=== PATIENT | female | born 1995 | race Caucasian/White ===

== ENCOUNTER 2021-03-19 10:45 | Emergency (ER) | payer OTHER, SELFPAY ==
[2021-03-19 10:55] VITALS: BP 120/70; PULSE 98; RESP 16; TEMP 36.5; O2SAT 100
--- NOTE | 2021-03-19 11:08 | ED.URI ---
HPI - URI/Sore Throat General Chief Complaint: Upper Respiratory Infection Stated Complaint: cough/sore throat Time Seen by Provider: 03/19/21 11:08 Source: patient and RN notes reviewed Mode of arrival: ambulatory Limitations: no limitations History of Present Illness HPI Narrative: 25-year-old female presents to the [facility] with complaints of cough and sore throat for 2 days. Has taken Tylenol. States the baby is moving normally. Has no concerns about her . States that she has had a sore throat for 2 days, worse this morning. MD elicited complaint: cough and sore throat Related Data Home Medications Medication Instructions Recorded Confirmed PNV cmb#95-ferrous fumarate-FA 1 tablet PO DAILY 03/17/21 03/17/21 [] Allergies Allergy/AdvReac Type Severity Reaction Status Date / Time amoxicillin Allergy Unknown Hives Verified 12/21/16 13:12 Review of Systems Review of Systems: All systems reviewed & are unremarkable except as noted in HPI and below Constitutional: Constitutional: Reports no additional constitutional complaints, Denies chills and Denies fever(s) Eyes: Eyes: Reports no additional eye complaints, Denies change in vision and Denies photophobia ENT: Reports as per HPI, Reports nasal congestion and Reports sore throat Cardiovascular: Cardiovascular: Reports no additional cardiovascular complaints and Denies chest pain Respiratory: Respiratory: Reports as per HPI, Denies chest congestion, Reports cough, Denies dyspnea and Denies wheezing Gastrointestinal: Gastrointestinal: Reports no additional gastrointestinal complaints Musculoskeletal: Musculoskeletal: Reports no additional musculoskeletal complaints Integumentary/Breasts: Skin/Breast: Reports system reviewed and no additional complaints, except as docu Neurologic: Reports system reviewed and no additional complaints, except as documented Psychiatric: Psychiatric: Reports no additional psychiatric complaints Allergic/Immunologic: Allergic/Immunologic: Reports no additional allergic/immunologic complaints [facility] Family History Family History Father Family history of migraine headaches Sibling Family history of migraine headaches Asthma Mother Family history of anemia Grandparent Family history of chronic obstructive pulmonary disease Malignant neoplasm of prostate Social History Social History Smoking status: Never smoker Alcohol intake: current Substance use: never Spiritual care concerns: No Comments At the time of my signature, I reviewed and agree with the nursing past medical, surgical, social, and family history. There is no relevant family history pertinent to the patient complaint. Exam Const: General: no acute distress and alert Nutritional Appearance: well nourished Orientation/consciousness: patient oriented x3 HENMT: Throat: uvula midline, postnasal drainage and no uvular edema Eyes: Conjunctivae: conjunctivae normal Pupils: Equal, round and reactive pupils present Neck: Neck: normal visual inspection, no lymphadenopathy and no meningeal signs Chest: Chest palpation & inspection: normal inspection of the chest Resp: Effort & Inspection: normal respiratory effort and no use of accessory muscles Auscultation: clear to auscultation bilaterally, no crackles, no rales, no rhonchi and no wheezes Cardio: Rate: regular rate : General: Yes no CVA tenderness Back/Spine/Pelvis: Back: no CVA tenderness Skin: General skin exam: normal color Rashes: no rashes Wounds: no wounds Neuro: General: patient oriented x3, moves all extremities, no meningeal signs and no focal motor deficits Speech: normal speech Gait exam (Neuro): Normal gait present Extrem: General: normal to inspection and no pedal edema Psych: Appearance: grossly normal and well kempt Mental Status: mental status grossly
== END 2021-03-19 11:22 | disposition home or self-care (01) ==
PROVIDERS: Emergency Provider Nurse Practitioner; PCP Internal Medicine
DX: R09.82 Postnasal drip (principal)
CPT/HCPCS: 87081; 87880; 99203; G0463

== ENCOUNTER 2021-03-27 10:00 | Inpatient (IN) | payer OTHER, SELFPAY ==
[2021-03-27] VITALS (140 sets, daily range): BP systolic 69–191; BP diastolic 33–160; PULSE 71–148; RESP 16–18; TEMP 36.6–37.4; O2SAT 82–100; BMI 41.3
--- NOTE | 2021-03-27 11:17 | LDADM ---
This patient, Constance Paredes, was admitted to Labor/Delivery/Recovery 105 on 03/27/21 at 10:00. Plans for labor, pain management and were discussed with patient. Patient/family oriented to hospital policies and general routines including ID bracelet, bed and alarms, visiting hours, pain management, procedures, bathroom and other care routines, personal items, smoking policy, room service/diet and guest tray routines, security routines, and visiting hours. Patient/Family are encouraged to report perceived risks to care and to ask questions if they do not understand what they are told or what they should do. See OBIX for further documentation.
[2021-03-27 11:31] LABS: Basophils Percent Auto 0.4 % (0.2-1.2); Eosinophils Absolute Auto 0.1 K/mm3 (0-0.3); Eosinophils Percent Auto 0.9 % (0-4.4); Hematocrit 39.5 % (37.0-47.0); Hemoglobin 13.7 g/dL (12.0-15.0); Immature Granulocyte Absolute 0.05 K/mm3 (0.00-0.031); Immature Granulocyte Percent A 0.6 % (0-0.5); Lymphocytes Absolute Auto 1.93 K/mm3 (0.9-3.2); Lymphocytes Percent Auto 22.5 % (18.3-44.2); Mean Corpuscular HGB Conc 34.7 g/dl (32-36); Mean Corpuscular Volume 92.3 fl (80-100); Mean Platelet Volume 10.6 fl (7.4-10.4); Monocytes Absolute Auto 0.6 K/mm3 (0.1-0.6); Monocytes Percent Auto 7.1 % (2.6-8.5); Neutrophils Absolute Auto 5.9 K/mm3 (1.3-6.7); Neutrophils Percent Auto 68.5 % (45.5-73.1); Platelet Count Result 243 k/mm3 (150-375); Red Blood Count 4.28 M/mm3 (4.2-5.4); Red Cell Distribution Width 12.3 % (11.5-14.5); White Blood Count 8.6 K/mm3 (4.5-10.0)
[2021-03-27] MEDS: LACTATED RINGERS 1,000 ML 125 ML IV CONT ×2 (13:57→17:40)
[2021-03-27] MEDS: OXYTOCIN 30 UNITS/NS 500 ML 30 UNITS/500 ML BAG 6 UNITS IV CONT (13:58)
[2021-03-27] MEDS: fentaNYL CITRATE INJ (*CRX) 100 MCG/2 ML VIAL 50 MCG IV PUSH (16:18)
--- NOTE | 2021-03-27 16:59 | WPDOBADMIT ---
Obstetrics - Admit Note Admission Note: record reviewed. Additions to the history and/or subsequent changes in the physical findings follow. 25 ty/o G1 at 37 3/7 weeks here after a gush of clear fluid at 0900 today. GBS neg. AVSS ABD soft, nontender, gravid, vertex EXT nontender Cervix 2/80/-2. Gross ROM. NST reactive TOCO: contractions every 2-4 min Bedside ultrasound by me shows vertex presentation. A: IUP at term with SROM. P: Augmenting labor as needed. Anticipate .
--- NOTE | 2021-03-27 17:48 | WPDANESEPPF ---
Anes - Initial Pre Proc Eval Procedure: labor epidural Date/Time: 03/27/21 17:48 Surgeon: Orlin Garvey MD Pre Op Diagnosis: labor pain Pre Op Diagnosis: SROM Patient Data Age: 25 Gender: F Height: 1.52 m Weight: 96 kg Last Vital Signs Temp 36.6 C 03/27/21 17:35 Pulse 76 03/27/21 17:46 Resp 16 03/27/21 17:35 BP 100/69 03/27/21 17:46 Pulse Ox 100 03/27/21 17:45 Allergies Allergy/AdvReac Type Severity Reaction Status Date / Time amoxicillin Allergy Unknown Hives Verified 12/21/16 13:12 Home Medications Medication Instructions Recorded Confirmed Type PNV cmb#95-ferrous fumarate-FA 1 tablet PO DAILY 03/17/21 03/17/21 History [] Laboratory Tests 03/27/21 03/27/21 03/27/21 11:22 11:22 14:06 WBC 8.6 K/mm3 K/mm3 (4.5-10.0) RBC 4.28 M/mm3 M/mm3 (4.2-5.4) Hgb 13.7 g/dL g/dL (12.0-15.0) Hct 39.5 % % (37.0-47.0) MCV 92.3 fl fl (80-100) MCH 32.0 pg pg (26-34) MCHC 34.7 g/dl g/dl (32-36) RDW 12.3 % % (11.5-14.5) Plt Count 243 k/mm3 k/mm3 (150-375) MPV 10.6 fl H fl (7.4-10.4) Immature Gran % (Auto) 0.6 % H % (0-0.5) Neut % (Auto) 68.5 % % (45.5-73.1) Lymph % (Auto) 22.5 % % (18.3-44.2) [place] % (Auto) 7.1 % % (2.6-8.5) Eos % (Auto) 0.9 % % (0-4.4) Baso % (Auto) 0.4 % % (0.2-1.2) Lymph # (Auto) 1.93 K/mm3 K/mm3 (0.9-3.2) [place] # (Auto) 0.6 K/mm3 K/mm3 (0.1-0.6) Eos # (Auto) 0.1 K/mm3 K/mm3 (0-0.3) Baso # (Auto) 0.0 K/mm3 K/mm3 (0.0-0.1) Abs Immat Gran (auto) 0.05 K/mm3 H K/mm3 (0.00-0.031) Absolute Neuts (auto) 5.9 K/mm3 K/mm3 (1.3-6.7) Absolute Nucleated RBC 0.0 K/mm3 K/mm3 (0.0-0.012) Nucleated RBC % 0.0 % % (0.0-0.2) RPR Pending Blood Type O Positive Antibody Screen Negative Patient hx anesthesia problems: none Family hx anesthesia problems: none Results Review: All pre-operative results and documents have been reviewed as part of the pre-operative evaluation. [facility] Family History Family History Father Family history of migraine headaches Sibling Family history of migraine headaches Asthma Mother Family history of anemia Grandparent Family history of chronic obstructive pulmonary disease Malignant neoplasm of prostate Social History Social History Smoking status: Never smoker Second hand tobacco smoke exposure: No Alcohol intake: current Substance use: never Spiritual care concerns: No Anes - Eval Final PreProcedure Day of Procedure 03/27/21 17:48 Patient weight: morbidly obese ASA classification: III Anesthesia type and monitoring: regional epidural Results Review: All pre-operative results and documents have been reviewed as part of the pre-operative evaluation. Informed Consent: The patient's anesthetic plan and its attendant risks and benefits were discussed with the patient/family/POA. Questions were solicited and answers provided to the satisfaction of the patient/family/POA.
[2021-03-27] MEDS: FAMOTIDINE 20 MG/2 ML VIAL IV PUSH (21:20)
[2021-03-27] MEDS: ONDANSETRON INJ 4 MG/2 ML VIAL IV PUSH (21:34)
[2021-03-28] VITALS (123 sets, daily range): BP systolic 73–131; BP diastolic 50–93; PULSE 66–283; RESP 16–20; TEMP 36.6–38.1; O2SAT 65–100
[2021-03-28] MEDS: LACTATED RINGERS 1,000 ML 125 ML IV CONT (02:45)
[2021-03-28] MEDS: ceFAZolin 2 GM/D5W 50 ML 2 GM/50 ML BAG IVPB (03:11)
--- NOTE | 2021-03-28 06:10 | P.PCNOB_ITS ---
OB - Delivery Note Procedure Delivery date: 03/28/21 Procedure: Induction method: none Delivery augmentation: pitocin Delivery monitor: external FHT, external uterine and internal uterine Route of delivery: Laceration Description: Vaginal - 1st Degree and Labial Delivery repair: vicryl (3-0) Specimen: Yes (cord blood) Quantitative Blood Loss (ml): 55 Anesthesia type: Epidural Disposition: PACU Complications: None Narrative: 25 y/o G1 at 37 4/7 weeks gestation who presented to the hospital after a gush of clear fluid. Labor was diagnosed. She subsequently received oxytocin for labor augmentation. She received an epidural for pain control. She was given Ancef IV after 18 hours of SROM. Her labor progressed and her cervix dilated completely. She pushed with good effort and delivered the infant's head to the perineum. A nuchal cord x 2 was splinted and the body delivered. The cord was reduced. The nose and mouth were bulb suctioned. After a delay, the cord was clamped and cut. The infant was handed off the field. Cord blood was collected. The placenta delivered spontaneously and was grossly normal in appearance. The usual 3 vessel cord was noted. A distal vaginal laceration was sustained, as was a right labial laceration. These were reapproximated using 3 0 Vicryl in interrupted figure of eight fashion. Excelle nt hemostasis resulted as did excellent reapproximation of the normal anatomy. Needle and instrument counts were correct. The patient was taken to recovery room in stable condition. The infant went to the nursery in stable condition. I was present and scrubbed for the entire delivery. Baby Date of : 03/28/21 Time of : 05:52 Weeks of gestation at delivery: 37 gender: Female Weight (pounds): 6 Weight (ounces): 13 presentation: vertex position: Right Occiput Anterior Placenta delivery description: Spontaneous and Normal Configuration cord vessel description: 3 Vessels and Nuchal Cord (x2) score one minute: 7 score five minutes: 9
--- NOTE | 2021-03-28 06:15 | P.DS_ITS ---
DS: Admitting Diagnosis Discharge Date 03/29/21 Admitting Diagnosis IUP at 37 3/7 weeks SROM DS: Discharge Diagnosis Discharge Diagnosis (1) (normal spontaneous vaginal delivery): Code(s): O80 - Encounter for full-term uncomplicated delivery Status: Acute OB - DS: Summary OB Procedures : None OB Procedures Intrapartum: Spontaneous Vag Delivery OB Procedures: : None DS: Data Data Completed and Pending Labs on day of discharge: Labs from last 24 hours 03/27/21 03/27/21 03/27/21 14:06 11:22 11:22 WBC 8.6 RBC 4.28 Hgb 13.7 Hct 39.5 MCV 92.3 MCH 32.0 MCHC 34.7 RDW 12.3 Plt Count 243 MPV 10.6 H Immature Gran % (Auto) 0.6 H Neut % (Auto) 68.5 Lymph % (Auto) 22.5 [place] % (Auto) 7.1 Eos % (Auto) 0.9 Baso % (Auto) 0.4 Lymph # (Auto) 1.93 [place] # (Auto) 0.6 Eos # (Auto) 0.1 Baso # (Auto) 0.0 Abs Immat Gran (auto) 0.05 H Absolute Neuts (auto) 5.9 Absolute Nucleated RBC 0.0 Nucleated RBC % 0.0 RPR Pending Blood Type O Positive Antibody Screen Negative Discharge Plan Discharge Attending physician on discharge: Orlin Garvey Discharging Clinician: Orlin Garvey Patient Disposition: Home, Self-Care Activity: pelvic rest Diet: regular Discharge Instructions: Call or return if temperature above 100.4? F, increased abdominal pain, increased vaginal bleeding or any new problems. Stand Alone Forms: General Discharge Information Follow-up/Referrals: Orlin Garvey MD [Physician] - 6 Weeks Discharge Medications: New ibuprofen 600 mg tablet 600 mg PO Q6H PRN (Reason: cramps) Qty: 30 RF: 0 Continued PNV cmb#95-ferrous fumarate-FA [] 28 mg iron- 800 mcg Tablet 1 tablet PO DAILY RF: 0 Date of admission: 03/27/21 10:00 Primary Care Provider: Shahbaz Mosley Admitting Provider: Orlin Garvey Attending physician on admission: Orlin Garvey Condition: Stable
[2021-03-28] MEDS: OXYTOCIN 30 UNITS/NS 500 ML 30 UNITS/500 ML BAG 125 UNITS IV CONT (06:35)
[2021-03-28] MEDS: BENZOCAINE 20% AER SPR (*SP) 56 GM CAN 1 SPRAY TOPICAL (07:49)
[2021-03-28] MEDS: WITCH HAZEL 40 PADS 1 PAD TOPICAL (07:49)
[2021-03-28] MEDS: IBUPROFEN 600 MG TABLET PO ×2 (07:52→14:18)
--- NOTE | 2021-03-28 08:53 | PC.NURSE ---
Patient transferred to post room #283 per wheelchair from labor and delivery. Support person present. Oriented to unit, room, information board, rooming in, admission packet and security measures. Patient verbalizes understanding.
[2021-03-28] MEDS: MULTIVIT/MIN/PREN/FOL AC/IRON TABLET 1 TAB PO (10:29)
[2021-03-28 13:13] LABS: Rapid Plasma Reagin Non-Reactive (NonReactive)
[2021-03-28] MEDS: ACETAMINOPHEN 325 MG TABLET 650 MG PO (19:15)
[2021-03-29] MEDS: IBUPROFEN 600 MG TABLET PO (03:00)
[2021-03-29 03:16] LABS: Hematocrit 31.7 % (37.0-47.0)
[2021-03-29] MEDS: ACETAMINOPHEN 325 MG TABLET 650 MG PO (06:10)
[2021-03-29 08:00] VITALS: BP 107/62; PULSE 75; RESP 16; TEMP 36.1
[2021-03-29] MEDS: DOCUSATE SODIUM 100 MG CAPSULE PO (08:03)
[2021-03-29] MEDS: MULTIVIT/MIN/PREN/FOL AC/IRON TABLET 1 TAB PO (08:03)
--- NOTE | 2021-03-29 08:25 | PC.NURSE ---
Patient viewed the discharge video Mother & Baby Care, The First Two Weeks online. Patient was given the opportunity and encouraged to ask questions. Patient verbalized understanding of information shared and has been given the mother/baby guide for home reference.
--- NOTE | 2021-03-29 09:38 | WPDANLDPN2 ---
Anes-Prog Note L&D Date/Time: 03/29/21 09:38 Comfortable throughout: labor and delivery Neuraxial method: epidural Epidural/Spinal procedure site: clean & non-tender Neuro status: Neuro function grossly intact. Cardiovascular status: normal Respiratory status: normal Airway patency: baseline Mental status: baseline Post-Op hydration status: normal Vital Signs: Last Vital Signs Temp 97.0 F L 03/29/21 08:00 Pulse 75 03/29/21 08:00 Resp 16 03/29/21 08:00 BP 107/62 03/29/21 08:00 Pulse Ox 97 03/28/21 12:33 Pain score (VAS): 0 Post-procedural complaints: none Patient feedback: Patient satisfied with anesthetic care.
--- NOTE | 2021-03-29 09:58 | PM.OBPNVD ---
OB - PN: Subj Subjective Date/time seen: 03/29/21 09:58 Narrative: Pain OK. Would like to go home. OB - PN: Obj Data Labs CBC & Chem 7: 03/29/21 03:02 Labs: Laboratory Results - last 24 hr 03/27/21 03/29/21 11:22 03:02 Hgb 11.0 L Hct 31.7 L RPR Non-reactive OB - PN A/P Plan Comments: A: PPD#1, doing well. P: Home to f/u 6 weeks. Exam Psych: Other: AVSS ABD soft, nontender, fundus firm EXT nontender
[2021-03-31 09:48] VITALS: BP 124/66; PULSE 74; RESP 16; TEMP 36.8; O2SAT 99
== END 2021-03-29 10:53 | disposition home or self-care (01) | DRG 807 ==
LOC: ANHLDR 03-28 06:16 → ANHOB2 03-28 08:54
PROVIDERS: Admitting Provider Obstetrics & Gynecology; PCP Internal Medicine; Visit Provider Obstetrics & Gynecology
DX: O75.2 Pyrexia during labor, not elsewhere classified (principal); Z37.0 Single live birth; O70.0 First degree perineal laceration during delivery; O69.81X0 Labor and delivery complicated by cord around neck, without compression, not applicable or unspecified; O76 Abnormality in fetal heart rate and rhythm complicating labor and delivery; Z3A.37 37 weeks gestation of pregnancy
CPT/HCPCS: 36415; 84112; 85014; 85018; 85025; 86592; 86850; 86900; 86901; A9270; J0131; J0690; J2405; J2590; J2795; J3010; J7120

== ENCOUNTER 2023-01-16 13:30 | Day surgery (SDC) | payer OTHER, SELFPAY ==
--- NOTE | ~2023-01-16 | US_ITS ---
EXAMINATION: US pelvic complete DATE: 01/16/2023 17:21 INDICATION: Miscarriage TECHNIQUE: Multiple transabdominal and endovaginal sonographic images of the pelvis were obtained. COMPARISON: None. FINDINGS: Uterus: 7.2 x 4.0 x 4.7 cm. Endometrial complex is heterogeneous and measures 18 mm. Right Ovary: 3.8 x 2.6 x 2.6 cm. Vascular flow is present. No adnexal mass. Left Ovary: 3.6 x 2.3 x 2.6 cm. Vascular flow is present. No adnexal mass. There is no free fluid in the pelvis. IMPRESSION: Heterogeneous and thickened endometrium, may represent retained products. Reviewed, dictated and finalized at location K.
[2023-01-16 13:36] VITALS: BP 138/77; PULSE 83; RESP 16; TEMP 36.5; O2SAT 100
--- NOTE | 2023-01-16 13:57 | ED.FEMALEGU ---
HPI - Female Genitourinary General Chief complaint: Vaginal Bleeding Stated complaint: possible miscarriage Time Seen by Provider: 01/16/23 13:45 Source: patient History of Present Illness HPI Narrative: 27 years old white female came to the emergency room with sudden backbleed. Patient is 2, para 1, abortions 0, status post IUD removal December 15, 2022. Patient tested positive for 2 weeks later at home., Had a visit to her FAMILY SUPPORT COORDINATOR with positive test in his office at that time. Patient scheduled for pelvic ultrasound next week. In the currently patient on vitamins, she does not smoke or drink or uses drugs. Patient does not remember when the last time had a menstrual cycle. Related Data Home Medications Medication Instructions Recorded Confirmed vit no.95-ferrous 1 tablet PO DAILY 03/17/21 03/17/21 fumarate 28 mg-folic acid 800 mcg tablet () Allergies Allergy/AdvReac Type Severity Reaction Status Date / Time amoxicillin Allergy Unknown Hives Verified 01/16/23 13:50 Review of Systems Review of Systems: All systems reviewed & are unremarkable except as noted in HPI and below PMFSH Family History Family History Father Family history of migraine headaches Sibling Family history of migraine headaches Asthma Mother Family history of anemia Grandparent Family history of chronic obstructive pulmonary disease Malignant neoplasm of prostate Social History Social History Smoking status: Never smoker Second hand tobacco smoke exposure: No Alcohol intake: current Substance use: never Spiritual care concerns: No Exam Narrative: General appearance: Well-developed, well-nourished Skin: Normal color Head: Normocephalic, nontraumatic Eyes: Clear conjunctiva ENT: Oropharynx normal, ears normal, nose normal Neck: Supple, nontender Chest and respiratory: Airway patent, no respiratory distress, no accessory muscle use Heart: Regular rate/rhythm Abdomen: Soft, nontender, no organomegaly, quiet bowel sounds Vascular: Normal peripheral pulses, normal capillary refill. Musculoskeletal: Normal range of motion, nontender back Neurologic: Alert and oriented ?3, FILEMAKER DEVELOPER is normal as tested, no gross motor deficit : External Female Exam: normal external appearance Speculum Exam - Vagina: normal appearance of the vagina and vaginal bleeding (Mild to moderate active vaginal bleeding, with quite a bit of blood clots, ) Speculum Exam - Cervix: normal appearance of the cervix Bimanual exam- vagina & uterus: cervical motion tenderness Bimanual Exam- Adnexa, other: tender Course Reevaluation(s) Reevaluation #1: Patient feels depressed and crying after ultrasound report about retained products. Date: 01/16/23 Time: 18:28 Consultations Consultation #1: Dr. Ninoska Joiner, OR for D&C Date: 01/16/23 Time: 18:08 Vital Signs Vital signs: Vital Signs Temperature 36.5 C 01/16/23 13:36 Pulse Rate 83 01/16/23 13:36 Respiratory Rate 16 01/16/23 13:36 Blood Pressure 138/77 01/16/23 13:36 Pulse Oximetry 100 01/16/23 13:36 Temperature 36.5 C 01/16/23 13:36 Pulse Rate 83 01/16/23 13:36 Respiratory Rate 16 01/16/23 13:36 Blood Pressure 138/77 01/16/23 13:36 Pulse Oximetry 100 01/16/23 13:36 MDM - Female Genitourinary MDM Narrative Medical decision making narrative: Patient presents with sudden vaginal bleeding, patient is , unknown duration, patient does not remember when the last time had a menstrual cycle, status post IUD re
[2023-01-16 14:09] LABS: Basophils Percent Auto 0.5 % (0.2-1.2); Eosinophils Absolute Auto 0.2 K/mm3 (0-0.3); Hematocrit 40.7 % (37.0-47.0); Hemoglobin 13.9 g/dL (12.0-15.0); Immature Granulocyte Absolute 0.02 K/mm3 (0.00-0.031); Immature Granulocyte Percent A 0.2 % (0-0.5); Lymphocytes Absolute Auto 2.22 K/mm3 (0.9-3.2); Mean Corpuscular HGB Conc 34.2 g/dl (32-36); Mean Corpuscular Hemoglobin 31.9 pg (26-34); Mean Corpuscular Volume 93.3 fl (80-100); Mean Platelet Volume 9.7 fl (7.4-10.4); Monocytes Absolute Auto 0.7 K/mm3 (0.1-0.6); Monocytes Percent Auto 7.8 % (2.6-8.5); Neutrophils Absolute Auto 5.4 K/mm3 (1.3-6.7); Neutrophils Percent Auto 63.5 % (45.5-73.1); Platelet Count Result 242 k/mm3 (150-375); Red Blood Count 4.36 M/mm3 (4.2-5.4); Red Cell Distribution Width 11.3 % (11.5-14.5); White Blood Count 8.5 K/mm3 (4.5-10.0)
[2023-01-16] MEDS: SODIUM CHLORIDE 0.9% IV 1,000 ML 999 ML IV CONT ×2 (14:13→18:10)
[2023-01-16 14:19] LABS: Appearance Urine Clear (Clear); Bilirubin Urine Negative (Negative); Blood Urine 1+ (Negative); Color Urine Yellow (Yellow); Glucose Urine UA Negative (Negative); Ketones Urine Negative (Negative); Leukocyte Esterase Ur Negative LEU/UL (Negative); Nitrate Urine Negative (Negative); Protein Urine Negative (Negative); Urobilinogen Urine 0.2 mg/dL (<2.0)
[2023-01-16 14:24] LABS: Bacteria Urine None Seen /hpf; Non Pathogenic Casts 0-2; Squamous Epithelial Cell Urine None seen /hpf (Few); WBC Urine 0-5 /hpf
[2023-01-16 14:38] LABS: Add Urine Microscopic? YES
[2023-01-16 16:45] VITALS: BP 127/78; PULSE 88; RESP 16; O2SAT 99
--- NOTE | 2023-01-16 17:02 | PC.NURSE ---
Pt to U/S via w/c at this time. sig other remains at bedside
[2023-01-16] MEDS: ACETAMINOPHEN 500 MG TABLET 1000 MG PO (17:34)
[2023-01-16 18:07] VITALS: BP 111/79; PULSE 84; RESP 20; O2SAT 100
--- NOTE | 2023-01-16 18:35 | PM.IMHP ---
H&P: HPI History of Present Illness Date/Time: 01/16/23 18:35 Chief Complaint: Bleeding with early Narrative: 27-year-old 2 were in her 1st trimester with incomplete AV. She had vaginal bleeding was seen through the ER. Ultrasound shows retained products of conception with a quantitative HCG over 5. Suction dilatation and curettage was offered. Risks and benefits reviewed. She had all questions answered and agrees to proceed f [facility] Family History Family History Father Family history of migraine headaches Sibling Family history of migraine headaches Asthma Mother Family history of anemia Grandparent Family history of chronic obstructive pulmonary disease Malignant neoplasm of prostate Social History Social History Smoking status: Never smoker Second hand tobacco smoke exposure: No Alcohol intake: current Substance use: never Spiritual care concerns: No Meds Home Medications and Allergies Home Medications Medication Instructions Recorded Confirmed Type vit no.95-ferrous 1 tablet PO DAILY 03/17/21 03/17/21 History fumarate 28 mg-folic acid 800 mcg tablet () Allergies Allergy/AdvReac Type Severity Reaction Status Date / Time amoxicillin Allergy Unknown Hives Verified 01/16/23 13:50 Vital Signs Vital Signs - 24 hr 01/16/23 13:36 01/16/23 16:45 01/16/23 18:07 Temperature 97.7 F Pulse Rate 83 88 84 Respiratory Rate 16 16 20 Blood Pressure 138/77 127/78 111/79 Pulse Oximetry 100 99 100 Exam Const: General: cooperative, healthy appearing and comfortable Nutritional Appearance: average body habitus Orientation/consciousness: oriented to person, oriented to place and oriented to time HENMT: Head: normal to inspection Resp: Effort & Inspection: normal respiratory effort Cardio: Rate: regular rate Rhythm: regular rhythm Heart sounds: S1 normal heart sound present and S2 normal heart sound present GI: Inspection: normal to inspection : External Female Exam: normal external appearance Speculum Exam - Vagina: normal appearance of the vagina and vaginal bleeding Speculum Exam - Cervix: Cervical os open Bimanual exam- vagina & uterus: enlarged Bimanual Exam- Adnexa, other: normal adnexae H&P: Results Labs Labs: Short CBC 01/16/23 Range/Units 14:02 WBC 8.5 (4.5-10.0) K/mm3 Hgb 13.9 (12.0-15.0) g/dL Hct 40.7 (37.0-47.0) % Plt Count 242 (150-375) k/mm3 Urine 01/16/23 Range/Units 14:12 Urine Color Yellow (Yellow) Urine Appearance Clear (Clear) Urine pH 6.0 (5.0-9.0) Ur Specific [place] 1.010 (1.001-1.035) Urine Protein Negative (Negative) mg/dL Urine Glucose (UA) Negative (Negative) mg/dL Assessment and Plan Assessment and plan (1) Miscarriage: Code(s): O03.9 - Complete or unspecified spontaneous without complication Status: Acute Plan Proceed with suction dilatation and curettage
--- NOTE | 2023-01-16 18:38 | WPDHPUPDATE1 ---
History and Physical Update Update Date/Time: 01/16/23 18:38 History and Physical has been reviewed, including an updated exam of the patient. There are NO changes in the patient's condition. Risks, benefits, and alternatives have been discussed and questions answered. Patient agrees to proceed with procedure.
--- NOTE | 2023-01-16 19:24 | WPDANESEPPF ---
Anes - Initial Pre Proc Eval Procedure: Operation Date: 01/16/23 19:45 Proposed Procedures p D&C Suction and Sharp - Robby Joiner MD Date/Time: 01/16/23 19:24 Surgeon: Robby Joiner MD Pre Op Diagnosis: possible miscarriage Patient Data Age: 27 Gender: F Height: 1.52 m Weight: 74 kg Last Vital Signs Temp 36.5 C 01/16/23 13:36 Pulse 84 01/16/23 18:07 Resp 20 01/16/23 18:07 BP 111/79 01/16/23 18:07 Pulse Ox 100 01/16/23 18:07 Allergies Allergy/AdvReac Type Severity Reaction Status Date / Time amoxicillin Allergy Unknown Hives Verified 01/16/23 13:50 Home Medications Medication Instructions Recorded Confirmed Type vit no.95-ferrous 1 tablet PO DAILY 03/17/21 03/17/21 History fumarate 28 mg-folic acid 800 mcg tablet () hydrocodone 5 mg-acetaminophen 325 1 tablet PO Q4H PRN pain #14 tabs 01/16/23 Rx mg tablet Laboratory Tests 01/16/23 01/16/23 14:02 14:12 WBC 8.5 K/mm3 (4.5-10.0) RBC 4.36 M/mm3 (4.2-5.4) Hgb 13.9 g/dL (12.0-15.0) Hct 40.7 % (37.0-47.0) MCV 93.3 fl (80-100) MCH 31.9 pg (26-34) MCHC 34.2 g/dl (32-36) RDW 11.3 L % (11.5-14.5) Plt Count 242 k/mm3 (150-375) MPV 9.7 fl (7.4-10.4) Immature Gran % (Auto) 0.2 % (0-0.5) Neut % (Auto) 63.5 % (45.5-73.1) Lymph % (Auto) 26.0 % (18.3-44.2) [place] % (Auto) 7.8 % (2.6-8.5) Eos % (Auto) 2.0 % (0-4.4) Baso % (Auto) 0.5 % (0.2-1.2) Lymph # (Auto) 2.22 K/mm3 (0.9-3.2) [place] # (Auto) 0.7 H K/mm3 (0.1-0.6) Eos # (Auto) 0.2 K/mm3 (0-0.3) Baso # (Auto) 0.0 K/mm3 (0.0-0.1) Abs Immat Gran (auto) 0.02 K/mm3 (0.00-0.031) Absolute Neuts (auto) 5.4 K/mm3 (1.3-6.7) Absolute Nucleated RBC 0.0 K/mm3 (0.0-0.012) Nucleated RBC % 0.0 % (0.0-0.2) Beta HCG, Quant 5201.00 mIU/ML Urine Color Yellow (Yellow) Urine Appearance Clear (Clear) Urine pH 6.0 (5.0-9.0) Ur Specific [place] 1.010 (1.001-1.035) Urine Protein Negative mg/dL (Negative) Urine Glucose (UA) Negative mg/dL (Negative) Urine Ketones Negative mg/dL (Negative) Ur Blood (Man) 1+ H (Negative) Urine Nitrate Negative (Negative) Urine Bilirubin Negative (Negative) Urine Urobilinogen 0.2 mg/dL (<2.0) Leukocyte Esterase Rfl Negative [place]NY/UL (Negative) Urine RBC 3-5 H /hpf (0-2) Urine WBC 0-5 /hpf Ur Squamous Epith Cells None seen /hpf (Few) Urine Bacteria None seen /hpf Urine Casts 0-2 Blood Type O Positive Antibody Screen Negative Screen Not Reportable Baby's Blood Type Not Reportable Baby's RIVERA Not Reportable Doses of RhIg Required 0 Patient hx anesthesia problems: none Family hx anesthesia problems: none Results Review: All pre-operative results and documents have been reviewed as part of the pre-operative evaluation. [facility] Family History Family History Father Family history of migraine headaches Sibling Family history of migraine headaches Asthma Mother Family history of anemia Grandparent Family history of chronic obstructive pulmonary disease Malignant neoplasm of prostate Social History Social History Smoking status: Never smoker Second hand tobacco smoke exposure: No Alcohol intake: current Substance use: never Spiritual care concerns: No Anes - Eval Final PreProcedure Day of Procedure 01/16/23 19:24 Patient weight: obese Heart: regular rate and rhythm Lungs: clear to auscultation Airway: Mallampati scale class II Neurological: alert and oriented [place]
[2023-01-16 19:54] VITALS: BP 114/62; PULSE 92; RESP 16; O2SAT 100
[2023-01-16] MEDS: LACTATED RINGERS 1,000 ML 30 ML IV CONT (19:54)
--- NOTE | 2023-01-16 19:58 | W.PM.PROC2 ---
Procedure Note - Detailed Date of Procedure 01/16/23 Pre-op Diagnosis possible miscarriage Post-op Diagnosis Same Procedure Performed Suction dilatation curettage Surgeon Robby Joiner MD Anesthesia MAC and Local Indications 27-year-old female with incomplete Ab Findings Uterus sounded 9cm. Tissue consistent products of conception Description of Procedure Patient is prepped draped in the sterile fashion placed dorsal lithotomy position. Under excellent sedation weighted speculum placed posterior fornix vagina. Anterior lip of cervix grasped with a single-tooth tenaculum. Two 5cc% xylocaine anesthesia placed at 2, 4, 8, 10:00 a.m. of the cervix. Uterus sounded 9cm. Serial dilatation fragment performed followed passage of the 9 mm suction curette. When a good grating sound was heard the answers withdrawn. The patient went to recovery in satisfactory condition. All sponge, needle, instrument counts were correct. There were no complications and she did not require RhoGAM she is Rh positive Estimated Blood Loss 25 Drains No Packing No Pathology Yes Complications No immediate complications Condition Stable Disposition PACU
[2023-01-16 20:20] VITALS: BP 116/58; PULSE 73; O2SAT 100
[2023-01-16] MEDS: oxyCODONE HCL (*CRX) 5 MG TAB IR PO (20:29)
[2023-01-16 20:45] VITALS: BP 110/57; PULSE 75
== END 2023-01-16 20:53 | disposition home or self-care (01) ==
LOC: ANHED 13:57 → ANHSURGERY 18:08
PROVIDERS: Emergency Medicine; Emergency Provider Emergency Medicine; PCP Internal Medicine; Visit Provider Obstetrics & Gynecology
PROC: (CPT 59812; principal; 2023-01-16 19:45)
DX: O03.4 Incomplete spontaneous abortion without complication (principal); Z79.891 Long term (current) use of opiate analgesic
CPT/HCPCS: 59812; 36415; 76856; 81001; 84702; 85025; 85461; 86850; 86900; 86901; 88305; 96360; 96361; 99285; A9270; J1100; J2250; J2405; J2704; J3010; J7030; J7120

== ENCOUNTER 2023-11-18 08:01 | Inpatient (IN) | payer OTHER, SELFPAY ==
[2023-11-18] VITALS (167 sets, daily range): BP systolic 73–192; BP diastolic 28–143; PULSE 64–168; RESP 16–20; TEMP 36.6–37.4; O2SAT 93–100; BMI 42.4
[2023-11-18 09:17] LABS: Basophils Percent Auto 0.4 % (0.2-1.2); Eosinophils Absolute Auto 0.1 K/mm3 (0-0.3); Hematocrit 40.9 % (37.0-47.0); Hemoglobin 13.8 g/dL (12.0-15.0); Immature Granulocyte Absolute 0.04 K/mm3 (0.00-0.031); Immature Granulocyte Percent A 0.4 % (0-0.5); Lymphocytes Absolute Auto 2.32 K/mm3 (0.9-3.2); Lymphocytes Percent Auto 22.9 % (18.3-44.2); Mean Corpuscular HGB Conc 33.7 g/dl (32-36); Mean Corpuscular Hemoglobin 31.4 pg (26-34); Mean Platelet Volume 11.5 fl (7.4-10.4); Monocytes Absolute Auto 0.8 K/mm3 (0.1-0.6); Monocytes Percent Auto 7.7 % (2.6-8.5); Neutrophils Absolute Auto 6.9 K/mm3 (1.3-6.7); Neutrophils Percent Auto 67.6 % (45.5-73.1); Platelet Count Result 245 k/mm3 (150-375); Red Cell Distribution Width 12.3 % (11.5-14.5); White Blood Count 10.1 K/mm3 (4.5-10.0)
[2023-11-18] MEDS: LACTATED RINGERS 1,000 ML 125 ML IV CONT ×3 (09:40→17:33)
[2023-11-18] MEDS: OXYTOCIN 30 UNITS/NS 500 ML 30 UNITS/500 ML BAG IV CONT (09:40)
--- NOTE | 2023-11-18 09:40 | LDADM ---
This patient, Constance Mejia, was admitted to Labor/Delivery/Recovery 103 on 11/18/23 at 08:01. Plans for labor, pain management and were discussed with patient. Patient/family oriented to hospital policies and general routines including ID bracelet, bed and alarms, visiting hours, pain management, procedures, bathroom and other care routines, personal items, smoking policy, room service/diet and guest tray routines, security routines, and visiting hours. Patient/Family are encouraged to report perceived risks to care and to ask questions if they do not understand what they are told or what they should do. See OBIX for further documentation.
[2023-11-18 10:04] LABS: OBXCEM ROM Plus Positive
[2023-11-18 10:11] LABS: HIV 1/2 Ab P24 Ag Result Negative (Negative)
--- NOTE | 2023-11-18 12:57 | WPDOBADMIT ---
Obstetrics - Admit Note Admission Note: record reviewed. Additions to the history and/or subsequent changes in the physical findings follow. 28 y/o at 37 4/7 weeks here with gush of clear fluid this morning at 0615. Rare contractions. GBS neg. AVSS NST reactive TOCO: rare contractions ABD soft, nontender, gravid, vertex EXT nontender Cervix 1-2/th per RN. RomPlus pos. Bedside ultrasound exam by me confirms cephalic presentation. A: IUP at term with SROM. P: Augment labor. Anticipate .
--- NOTE | 2023-11-18 15:13 | WPDANESEPP ---
Anes - Eval Pre Procedure Procedure: labor epidural Date/Time: 11/18/23 15:13 Surgeon: Mare Preop Diagnosis: Pain during labor Pre Op Diagnosis: leaking Patient Data Age: 28 Gender: F Height: 1.52 m Weight: 98.5 kg Last Vital Signs Temp 37.3 C 11/18/23 14:00 Pulse 92 11/18/23 15:12 Resp 18 11/18/23 14:00 BP 124/80 11/18/23 15:12 Pulse Ox 100 11/18/23 15:10 O2 Del Method Room Air 11/18/23 09:40 Allergies Allergy/AdvReac Type Severity Reaction Status Date / Time amoxicillin Allergy Hives Verified 11/03/23 09:59 Home Medications Medication Instructions Recorded Confirmed Type vits no.126-ferrous fum 1 tablet PO DAILY 11/03/23 11/18/23 History 28 mg iron-folic acid 800 mcg tablet (Classic ) Laboratory Tests 11/18/23 11/18/23 08:42 09:04 WBC 10.1 H K/mm3 (4.5-10.0) RBC 4.40 M/mm3 (4.2-5.4) Hgb 13.8 g/dL (12.0-15.0) Hct 40.9 % (37.0-47.0) MCV 93.0 fl (80-100) MCH 31.4 pg (26-34) MCHC 33.7 g/dl (32-36) RDW 12.3 % (11.5-14.5) Plt Count 245 k/mm3 (150-375) MPV 11.5 H fl (7.4-10.4) Immature Gran % (Auto) 0.4 % (0-0.5) Neut % (Auto) 67.6 % (45.5-73.1) Lymph % (Auto) 22.9 % (18.3-44.2) [place] % (Auto) 7.7 % (2.6-8.5) Eos % (Auto) 1.0 % (0-4.4) Baso % (Auto) 0.4 % (0.2-1.2) Lymph # (Auto) 2.32 K/mm3 (0.9-3.2) [place] # (Auto) 0.8 H K/mm3 (0.1-0.6) Eos # (Auto) 0.1 K/mm3 (0-0.3) Baso # (Auto) 0.0 K/mm3 (0.0-0.1) Abs Immat Gran (auto) 0.04 H K/mm3 (0.00-0.031) Absolute Neuts (auto) 6.9 H K/mm3 (1.3-6.7) Absolute Nucleated RBC 0.000 K/mm3 (0.0-0.012) Nucleated RBC % 0.0 % (0.0-0.2) Membranes Rupture Rom plus positive Membranes Rup Com Yes RPR Pending HIV 1&2 Ab/P24 Ag 4thGn Negative (Negative) Blood Type O Positive Antibody Screen Negative Patient hx anesthesia problems: none Family hx anesthesia problems: none Results Review: All pre-operative results and documents have been reviewed as part of the pre-operative evaluation. PENDING SALE TO [facility] Family History Family History Other No pertinent family history Social History Social History Smoking status: Never smoker Second hand tobacco smoke exposure: No Substance use: never Do You Feel Safe in your Home?: Yes Lack of Transportation: No Lack of Food: Never True Current Housing: I Have Housing Concerned About Future Housing: No Difficulty Paying Gas/Electric Bills: No Difficulty Paying for Meds: No Currently Unemployed: No Education: Trade/Vocational Certificate Difficulty w/ Childcare or Family Care: No Spiritual care concerns: No Exam Day of Procedure 11/18/23 15:13 Patient weight: obese Heart: regular rate and rhythm Lungs: normal air movement Airway: Mallampati scale class II Neurological: alert and oriented
--- NOTE | 2023-11-18 19:46 | PM.OBPRVD ---
OB - Vaginal Delivery Note Procedure Delivery date: 11/18/23 Induction method: None Delivery augmentation: Pitocin Delivery monitor: External FHT and External Uterine Route of delivery: Episiotomy description: None Laceration Description: None Specimen: Yes (cord blood) Quantitative Blood Loss (ml): 80 Anesthesia type: Epidural Disposition: PACU Complications: None Narrative: 28 y/o at 37 4/7 weeks gestation who presented to the hospital after a gush of clear fluid. SROM was confirmed. Oxytocin was administered intravenously for labor augmentation. She received an epidural for pain control. Her labor progressed and her cervix dilated completely. She pushed with good effort and delivered the infant's head to the perineum, followed by the body. The nose and mouth were bulb suctioned. After a delay, the cord was clamped and cut. The was handed off the field. Cord blood was collected. The placenta delivered spontaneously and was grossly normal in appearance. The usual 3 vessel cord was noted. There were no lacerations. Needle and instrument counts were correct. The patient was taken to recovery room in stable condition. The went to the nursery in stable condition. I was present and scrubbed for the entire delivery. Baby Date of : 11/18/23 Time of : 19:37 Gestational Age by Date: 37 Infant gender: Male presentation: vertex position: Left Occiput Anterior Placenta delivery description: Spontaneous Cord Vessel Description: 3 Vessels and Nuchal Cord score one minute: 9 score five minutes: 9
--- NOTE | 2023-11-18 19:49 | PM.OBDSVD ---
DS: Admitting Diagnosis Discharge Date 11/19/23 Admitting Diagnosis IUP at 37 4/7 weeks SROM DS: Discharge Diagnosis Discharge Diagnosis (1) (normal spontaneous vaginal delivery): Code(s): O80 - Encounter for full-term uncomplicated delivery Status: Acute OB - DS: Summary OB Procedures : None OB Procedures Intrapartum: Spontaneous Vag Delivery OB Procedures: : None Peripartum Data Laceration Description: None Episiotomy description: None Time Spent with Patient Time attestation: Total time spent providing and/or coordinating discharge services: DS: Data Data Completed and Pending Labs on day of discharge: Labs from last 24 hours 11/18/23 11/18/23 09:04 08:42 WBC 10.1 H RBC 4.40 Hgb 13.8 Hct 40.9 MCV 93.0 MCH 31.4 MCHC 33.7 RDW 12.3 Plt Count 245 MPV 11.5 H Immature Gran % (Auto) 0.4 Neut % (Auto) 67.6 Lymph % (Auto) 22.9 [place] % (Auto) 7.7 Eos % (Auto) 1.0 Baso % (Auto) 0.4 Lymph # (Auto) 2.32 [place] # (Auto) 0.8 H Eos # (Auto) 0.1 Baso # (Auto) 0.0 Abs Immat Gran (auto) 0.04 H Absolute Neuts (auto) 6.9 H Absolute Nucleated RBC 0.000 Nucleated RBC % 0.0 Membranes Rupture Rom plus positive Membranes Rup Com Yes RPR Pending HIV 1&2 Ab/P24 Ag 4thGn Negative Blood Type O Positive Antibody Screen Negative Discharge Plan Discharge Attending physician on discharge: Orlin Garvey Discharging Clinician: Orlin Garvey Patient Disposition: Home, Self-Care Activity: pelvic rest Diet: regular Discharge Instructions: Call or return if temperature above 100.4? F, increased abdominal pain, increased vaginal bleeding or any new problems. Stand Alone Forms: General Discharge Information Follow-up/Referrals: Orlin Garvey MD [Physician] - 6 Weeks Discharge Medications: New ibuprofen 600 mg tablet 600 mg PO Q6H PRN (Reason: cramps) Qty: 30 0RF Continued PNV cmb#95-ferrous fumarate-FA [] 28 mg iron- 800 mcg Tablet 1 tablet PO DAILY Classic 28 mg iron- 800 mcg Tablet 1 tablet PO DAILY Discontinued hydrocodone-acetaminophen 5-325 mg tablet 1 tablet PO Q4H PRN (Reason: pain) Qty: 14 0RF Date of admission: 11/18/23 08:01 Primary Care Provider: PHYSICIAN,INDUCTION COORDINATION POWER ENGINEER Admitting Provider: Orlin Garvey Attending physician on admission: Orlin Garvey Condition: Stable
[2023-11-18] MEDS: OXYTOCIN 30 UNITS/NS 500 ML 30 UNITS/500 ML BAG 125 UNITS IV CONT (20:16)
--- NOTE | 2023-11-18 22:20 | PC.NURSE ---
Patient transferred to post room #288 via (W/C). Support person present. Oriented to unit, room, information board, rooming in, admission packet and security measures. Patient verbalizes understanding.
[2023-11-19] MEDS: IBUPROFEN 600 MG TABLET PO ×2 (05:07→11:38)
[2023-11-19 05:08] VITALS: BP 117/72; PULSE 83; RESP 16; TEMP 36.4; O2SAT 100
[2023-11-19] MEDS: ACETAMINOPHEN 325 MG TABLET 650 MG PO ×2 (05:42→16:34)
[2023-11-19 05:44] LABS: Hematocrit 42.4 % (37.0-47.0); Hemoglobin 14.2 g/dL (12.0-15.0)
--- NOTE | 2023-11-19 06:25 | PC.NURSE ---
Introductions were made, then consulted with patient to assess needs related to . Mother led the conversation with her?plans to feed?her infant and the?experience so far. Mother plans to pump and bottle feed with both breast milk and formula. Gentlease formula is mothers preferred choice. Reviewed pump education and provided handouts for reference. Mother works well with her with encouragement and education. Parents voiced understanding of information, demonstrated learning and will call if there is a request for assistance. Reported to the Primary RN.
[2023-11-19 07:17] LABS: Rapid Plasma Reagin Non-Reactive (NonReactive)
--- NOTE | 2023-11-19 07:46 | WPDANLDPN2 ---
Anes-Prog Note L&D Date/Time: 11/19/23 07:46 Neuro status: Neuro function grossly intact. Cardiovascular status: normal Respiratory status: normal Airway patency: baseline Mental status: baseline Post-Op hydration status: normal Vital Signs: Last Vital Signs Temp 36.4 C 11/19/23 05:08 Pulse 83 11/19/23 05:08 Resp 16 11/19/23 05:08 BP 117/72 11/19/23 05:08 Pulse Ox 100 11/19/23 05:08 O2 Del Method Room Air 11/18/23 23:24 Pain score (VAS): 0 I/O: Intake & Output 11/18/23 11/18/23 11/19/23 15:59 23:59 07:59 Intake Total 647.9 837.5 Output Total 225 Balance 647.9 612.5 Post-procedural complaints: none Patient feedback: Patient satisfied with anesthetic care.
[2023-11-19 07:55] VITALS: BP 94/61; PULSE 77; RESP 16; TEMP 37.1; O2SAT 100
[2023-11-19] MEDS: MULTIVIT/MIN/PREN/FOL AC/IRON TABLET 1 TAB PO (11:38)
[2023-11-19] MEDS: TETANUS,DIPHTHERIA,AC PERTUSSIS ADULT (0.5 ML) BOOSTRIX IM (11:39)
[2023-11-19 12:34] VITALS: BP 116/67; PULSE 81; RESP 16; TEMP 36.8; O2SAT 100
--- NOTE | 2023-11-19 12:37 | PM.OBPNVD ---
OB - PN: Subj Subjective Date/time seen: 11/19/23 12:37 Narrative: Pain OK. Would like to go home. Would like circumcision for son. OB - PN: Obj Data Labs 11/19/23 05:31 Labs: Laboratory Results - last 24 hr 11/18/23 11/19/23 09:04 05:31 Hgb 14.2 Hct 42.4 RPR Non-reactive OB - PN A/P Plan Comments: A: PPD#1, doing well. P: Reviewed circ. Home to f/u 6 weeks. Exam Psych: Other: AVSS ABD soft, nontender, fundus firm EXT nontender
[2023-11-19 19:30] VITALS: BP 116/69; PULSE 78; RESP 18; TEMP 36.5; O2SAT 100
[2023-11-20 09:19] VITALS: BP 114/81; PULSE 85; RESP 18; TEMP 37; O2SAT 100
== END 2023-11-19 21:47 | disposition home or self-care (01) | DRG 807 ==
LOC: ANHLDR 19:50 → ANHOB2 11-19 01:01
PROVIDERS: Admitting Provider Obstetrics & Gynecology; Visit Provider Obstetrics & Gynecology
DX: O80 Encounter for full-term uncomplicated delivery (principal); Z37.0 Single live birth; Z3A.38 38 weeks gestation of pregnancy
CPT/HCPCS: 36415; 84112; 85014; 85018; 85025; 86592; 86703; 86850; 86900; 86901; 90715; A9270; G0432; J2590; J2795; J7120